=== PATIENT | female | born 1990 | race American Indian/Alaskan Native ===

== ENCOUNTER 2018-11-19 15:00 | Outpatient (CLI) | payer OTHER | END 2018-11-19 16:28 | disposition HB | LOC: NST 15:00 | DX: Z34.83 Encounter for supervision of other normal pregnancy, third trimester (principal) ==

== ENCOUNTER 2018-11-22 11:26 | Outpatient (CLI) | payer OTHER | END 2018-11-22 12:02 | disposition home or self-care (01) | LOC: NST 11:26 | DX: Z34.83 Encounter for supervision of other normal pregnancy, third trimester (principal) ==